=== PATIENT | male | born 2000 | race Caucasian/White ===

== ENCOUNTER 2023-07-09 12:01 | Emergency (ER) | payer OTHER, SELFPAY ==
[2023-07-09 12:38] VITALS: BP 111/75; PULSE 64; RESP 20; TEMP 36.1; O2SAT 100
[2023-07-09 14:14] LABS: Basophils Absolute Auto 0.1 K/mm3 (0.0-0.1); Basophils Percent Auto 0.7 % (0.2-1.2); Eosinophils Absolute Auto 0.4 K/mm3 (0-0.3); Hematocrit 43.2 % (42.0-52.0); Hemoglobin 14.6 g/dL (14.0-18.0); Immature Granulocyte Absolute 0.02 K/mm3 (0.00-0.031); Immature Granulocyte Percent A 0.3 % (0-0.5); Lymphocytes Absolute Auto 2.58 K/mm3 (0.9-3.2); Mean Corpuscular HGB Conc 33.8 g/dl (32-36); Mean Corpuscular Hemoglobin 30.4 pg (26-34); Mean Corpuscular Volume 89.8 fl (80-100); Monocytes Absolute Auto 0.5 K/mm3 (0.1-0.6); Monocytes Percent Auto 6.9 % (2.6-8.5); Neutrophils Absolute Auto 3.5 K/mm3 (1.3-6.7); Neutrophils Percent Auto 50.1 % (45.5-73.1); Platelet Count Result 290 k/mm3 (150-375); Red Blood Count 4.81 M/mm3 (4.6-6.20); Red Cell Distribution Width 12.2 % (11.5-14.5)
--- NOTE | 2023-07-09 14:41 | ED.ABDPAIN ---
HPI - Abdominal Pain General Chief Complaint: Abdominal Pain Stated Complaint: abdominal pain Time Seen by Provider: 07/09/23 13:09 History of Present Illness HPI narrative: This is a 23-year-old male, with no significant past medical history, who presents to the emergency department complaining of abdominal pain after an injury during basketball 1 month ago. The patient states while playing, he was elbowed in the abdomen. He did not lose consciousness has not had vomiting has not noticed any bleeding. He rates his pain 4-5/10, described as dull, worse with running, weightlifting and sit-ups. He states his pain is now radiating towards the right flank. He has no other complaints at this time. Related Data Allergies Allergy/AdvReac Type Severity Reaction Status Date / Time codeine Allergy Mild Verified 09/15/09 10:09 nystatin Allergy Mild Verified 09/15/09 10:09 RED 4 -0 Allergy Mild Uncoded 09/15/09 10:09 Review of Systems Review of Systems: CONSTITUTIONAL: Denies fever, chills, or sweats. CARDIOVASCULAR: Denies chest pain, palpitations, or edema. RESPIRATORY: Denies cough or dyspnea. GASTROINTESTINAL: Abdominal wall pain Denies nausea, vomiting, or diarrhea. GENITOURINARY: Denies dysuria or hematuria. SKIN: Denies rash or itching. MUSCULOSKELETAL: Denies back pain, joint pain, or myalgia. NEUROLOGIC: Denies headache, numbness, dizziness, or weakness. PSYCHIATRIC: Denies anxiety or depression. PMFSH Past Medical History Medical History No significant past medical history Surgical History Surgical History No significant past surgical history Social History Social History Smoking status: Current every day smoker Tobacco type: e-cigarettes/vaping Alcohol intake: current Drinks per week: 2 Substance use: never Exam Narrative: GENERAL: Well-developed, well-nourished, and in no acute distress. HEAD: Normocephalic, atraumatic. EYES: PERRLA and EOMI. CHEST: Clear to auscultation. No respiratory distress. No wheezes rales or rhonchi HEART: Regular rate and rhythm. No murmur heard. Normal peripheral pulses. ABDOMEN: Soft, mild tenderness to palpation in the anterior, epigastrium and right flank, nondistended, normal active bowel sounds. No CVA tenderness to palpation. No noted erythema, ecchymosis or mass EXTREMITIES: Normal range of motion. No edema. SKIN: Warm, dry, no rash. NEURO: Alert and oriented x3. No focal deficit. Moving all 4 limbs spontaneously PSYCH: Normal mood and affect. Course Course Emergency Course: 14:55 - CBC unremarkable, including a hemoglobin of 14.6. Considering the patient's initial injury happened 1 month ago and he has not had symptoms concerning for hemorrhage, I suspect his pain is related to muscular contusion. Will discharge with pain medications and recommendation for primary care follow-up. I discussed the findings and recommendations with The patient. Discussed return and emergency precautions including signs/symptoms of acute abdomen and hemorrhage. The patient voiced understanding and agreement with the plan. All questions answered to his satisfaction. Vital Signs Vital signs: Vital Signs Temperature 97 F L 07/09/23 12:38 Pulse Rate 64 07/09/23 12:38 Respiratory Rate 20 07/09/23 12:38 Blood Pressure 111/75 07/09/23 12:38 Pulse Oximetry 100 07/09/23 12:38 Oxygen Delivery Room Air 07/09/23 12:38 Temperature 97.6 F 07/09/23 15:20 Pulse Rate 85 07/09/23 15:20 Respiratory Rate 18 07/09/23 15:20 Blood Pressure 121/58 L 07/09/23 15:20 Pulse Oximetry 98 07/09/23 15:20 Oxygen Delivery Room Air 07/09/23 12:38 MDM - Abdominal Pain MDM Narrative Medical decision making narrative: plan: Labs, pain control, reassess Differential Diagnosis Differe
[2023-07-09 15:20] VITALS: BP 121/58; PULSE 85; RESP 18; TEMP 36.4; O2SAT 98
== END 2023-07-09 15:22 | disposition home or self-care (01) ==
PROVIDERS: Emergency Provider Preventive Medicine Aerospace Medicine
DX: R10.9 Unspecified abdominal pain (principal); F17.290 Nicotine dependence, other tobacco product, uncomplicated; W51.XXXA Accidental striking against or bumped into by another person, initial encounter; Y93.67 Activity, basketball
CPT/HCPCS: 36415; 85025; 99283